=== PATIENT | female | born 1960 | race Caucasian/White ===

== ENCOUNTER 2017-08-15 13:32 | Observation (INO) | payer SELFPAY ==
--- NOTE | 2017-08-15 15:15 | ER Document Report ---
ED Medical Screen (RME) - General Chief Complaint: Chest Pain Stated Complaint: CHEST PAIN,HEADACHE Time Seen by Provider: 08/15/17 15:13 Mode of Arrival: Ambulatory Information source: Patient Notes: Patient reports sudden onset several hours ago of chest pain dizziness headache and bilateral arm pain. No previous cardiac evaluations or workup. No known cardiac or pulmonary history. TRAVEL OUTSIDE OF THE [place] IN LAST 30 DAYS: No - Related Data Allergies/Adverse Reactions: No Known Allergies Allergy (Unverified 08/15/17 13:32) Physical Exam - Vital signs Vitals: Temp Pulse Resp BP Pulse Ox 97.9 F 94 21 H 163/72 H 98 08/15/17 13:48 08/15/17 13:48 08/15/17 13:48 08/15/17 13:48 08/15/17 13:48 Course - Vital Signs Vital signs: Temp Pulse Resp BP Pulse Ox 97.9 F 94 21 H 163/72 H 98 08/15/17 13:48 08/15/17 13:48 08/15/17 13:48 08/15/17 13:48 08/15/17 13:48
[2017-08-15 15:42] LABS: ABSOLUTE BASOPHILS # (AUTO) 0.1 10^3/uL (0.0-0.2); ABSOLUTE EOSINOPHILS # (AUTO) 0.1 10^3/uL (0.0-0.6); ABSOLUTE LYMPHOCYTES (AUTO) 2.7 10^3/uL (0.5-4.7); ABSOLUTE MONOCYTES (AUTO) 0.5 10^3/uL (0.1-1.4); ABSOLUTE NEUT (AUTO) 4.3 10^3/uL (1.7-8.2); EOSINOPHILS % (AUTO) 1.8 % (0-6); HEMATOCRIT 43.5 % (36.0-47.0); HEMOGLOBIN 14.7 g/dL (12.0-15.5); MEAN CORPUSCULAR HEMOGLOBIN 34.9 pg (27.0-33.4); MEAN CORPUSCULAR HGB CONC 33.8 g/dL (32.0-36.0); MEAN CORPUSCULAR VOLUME 103 fl (80-97); MONOCYTES % (AUTO) 6.9 % (3-13); PLATELET COUNT 255 10^3/uL (150-450); RED BLOOD COUNT 4.22 10^6/uL (3.72-5.28); RED CELL DISTRIBUTION WIDTH 13.4 % (11.5-14.0); SEGMENTED NEUTROPHILS % (AUTO) 55.3 % (42-78); TOTAL CELLS COUNTED % (AUTO) 100 %; WHITE BLOOD COUNT 7.8 10^3/uL (4.0-10.5)
--- NOTE | 2017-08-15 15:49 | RADIOLOGY REPORT (SQ) ---
EXAM DESCRIPTION: CHEST PA/LAT COMPLETED DATE/TIME: 08/15/2017 3:40 pm REASON FOR STUDY: pain COMPARISON: None. EXAM PARAMETERS: NUMBER OF VIEWS: two views TECHNIQUE: Digital Frontal and Lateral radiographic views of the chest acquired. RADIATION DOSE: NA LIMITATIONS: none FINDINGS: LUNGS AND PLEURA: No opacities, masses or pneumothorax. No pleural effusion. MEDIASTINUM AND HILAR STRUCTURES: No masses or contour abnormalities. HEART AND VASCULAR STRUCTURES: Heart normal size. No evidence for failure. BONES: Possible old rib fractures on the right. HARDWARE: None in the chest. OTHER: No other significant finding. IMPRESSION: NO SIGNIFICANT RADIOGRAPHIC FINDING IN THE CHEST. TECHNICAL DOCUMENTATION: JOB ID: [id number] [employer]- All Rights Reserved
[2017-08-15 15:59] LABS: ALANINE AMINOTRANSFERASE 19 U/L (9-52); ALBUMIN 4.4 g/dL (3.5-5.0); ALKALINE PHOSPHATASE 120 U/L (38-126); ANION GAP 10 (5-19); ASPARTATE AMINO TRANSFERASE 18 U/L (14-36); BILIRUBIN,DIRECT 0.3 mg/dL (0.0-0.4); BILIRUBIN,TOTAL 0.3 mg/dL (0.2-1.3); BLOOD UREA NITROGEN 15 mg/dL (7-20); CALCIUM 9.9 mg/dL (8.4-10.2); CARBON DIOXIDE 30 mmol/L (22-30); CHLORIDE 105 mmol/L (98-107); GLUCOSE 80 mg/dL (75-110); POTASSIUM 4.4 mmol/L (3.6-5.0); SODIUM 144.5 mmol/L (137-145)
[2017-08-15] MEDS ORDERED: KETOROLAC TROMETHAMINE INJ/PF 30 MG/1 ML SDV IV ONE (16:32)
--- NOTE | 2017-08-15 16:38 | ER Document Report ---
ED General - General Chief Complaint: Chest Pain Stated Complaint: CHEST PAIN,HEADACHE Time Seen by Provider: 08/15/17 15:13 Mode of Arrival: Ambulatory Information source: Patient Notes: 57-year-old female no known past medical history since she has not seen a physician in 24 years presents with complaints of chest pressure sensation midsternal left-sided. Patient notes symptoms have been on and off for the past few hours. Patient is currently she has no chest pain, she notes that she had a headache this morning and checked her blood pressure which was elevated. She says she has no diagnosis of high blood pressure TRAVEL OUTSIDE OF THE [place] IN LAST 30 DAYS: No - HPI Onset: Just prior to arrival Onset/Duration: Sudden Quality of pain: Pressure Severity: Mild Pain Level: 1 Associated symptoms: Chest pain, Headache Exacerbated by: Denies Relieved by: Denies Similar symptoms previously: No Recently seen / treated by doctor: No - Related Data Allergies/Adverse Reactions: No Known Allergies Allergy (Unverified 08/15/17 13:32) Past Medical History - General Information source: Patient - Social History Smoking Status: Current Every Day Smoker Cigarette use (# per day): Yes Chew tobacco use (# tins/day): No Smoking Education Provided: No Frequency of alcohol use: Occasional Drug Abuse: None Family History: Reviewed & Not Pertinent Patient has suicidal ideation: No Patient has homicidal ideation: No Renal/ Medical History: Reports: Hx Peritoneal Dialysis Past Surgical History: Reports: Hx Section Review of Systems - Review of Systems Notes: REVIEW OF SYSTEMS: CONSTITUTIONAL : Denies fever, chills, or sweats. Denies recent illness. EENT: Denies eye, ear, throat, or mouth pain or symptoms. Denies nasal or sinus congestion or discharge. Denies throat, tongue, or mouth swelling or difficulty swallowing. CARDIOVASCULAR: Admits to chest pain RESPIRATORY: Denies cough, cold, or chest congestion. Denies shortness of breath, difficulty breathing, or wheezing. GASTROINTESTINAL: Denies abdominal pain or distention. Denies nausea, vomiting , or diarrhea. Denies blood in vomitus, stools, or per rectum. Denies black, tarry stools. Denies constipation. GENITOURINARY: Denies difficulty urinating, painful urination, burning, frequency, blood in urine, or discharge. FEMALE GENITOURINARY: Denies vaginal bleeding, heavy or abnormal periods, irregular periods. Denies vaginal discharge or odor. MUSCULOSKELETAL: Denies back or neck pain or stiffness. Denies joint pain or swelling. SKIN: Denies rash, lesions or sores. HEMATOLOGIC : Denies easy bruising or bleeding. LYMPHATIC: Denies swollen, enlarged glands. NEUROLOGICAL: Admits to tingling in the fingers admits to headache PSYCHIATRIC: Denies anxiety or stress. Denies depression, suicidal ideation, or homicidal ideation. ALL OTHER SYSTEMS REVIEWED AND NEGATIVE. PHYSICAL EXAMINATION: GENERAL: Well-appearing, well-nourished and in no acute distress. HEAD: Atraumatic, normocephalic. EYES: Pupils equal round and reactive to light, extraocular movements intact, conjunctiva are normal. ENT: Nares patent, oropharynx clear without exudates. Moist mucous membranes. NECK: Normal range of motion, supple without lymphadenopathy LUNGS: Breath sounds clear to auscultation bilaterally and equal. No wheezes rales or rhonchi. HEART: Regular rate and rhythm without murmurs ABDOMEN: Soft, nontender, nondistended abdomen. No guarding, no rebound. No masses appreciated. Female : deferred Musculoskeletal: Normal range of motion, no pitting or edema. No cyanosis. NEUROLOGICAL: Cranial nerves grossly intact. Normal speech, normal gait. Normal sensory, motor exams PSYCH: Normal mood, normal affect. SKIN: Warm, Dry, normal turgor, no rashes or lesions noted. Dictation was performed using [employer] voice recognition software Physical Exam - Vital signs Vitals: Temp Pulse Resp BP Pulse Ox 97.9 F 94 21 H 163/72 H 98 08/15/17 13:48 08/15/17 13:48 08/15/17 13:48 08/15/17 13:48 08/15/17 13:48 Course - Re-evaluation Re-evalutation: 08/15/17 16:39 Patient's lab work was quite benign however she has never seen a physician or been evaluated for cardiac risk factors, she will require observation 08/15/17 16:40 Patient's presentation is not concerning for an aortic dissection - Vital Signs Vital signs: Temp Pulse Resp BP Pulse Ox 97.9 F 94 12 144/91 H 98 08/15/17 13:48 08/15/17 13:48 08/15/17 15:56 08/15/17 15:56 08/15/17 15:56 - Laboratory Result Diagrams: 08/15/17 15:22 08/15/17 15:22 Laboratory results interpreted by me: 08/15/17 15:22 MCV 103 H MCH 34.9 H - Diagnostic Test Radiology reviewed: Image reviewed, Reports reviewed - EKG Interpretation by Me EKG shows normal: Sinus rhythm, [place], Intervals, QRS Complexes Discharge - Discharge Clinical Impression: Chest pain Qualifiers: Chest pain type: unspecified Qualified Code(s): R07.9 - Chest pain, unspecified Headache Qualifiers: Headache type: unspecified Headache chronicity pattern: acute headache Intractability: not intractable Qualified Code(s): R51 - Headache Condition: Stable Disposition: ADMITTED OBSERVATION Admitting Provider: Hospitalist Unit Admitted: Telemetry
[2017-08-15] MEDS ORDERED: INFLUENZA ADLT QUAD (36MOS+) 2017-18 VAC 0.5 ML SYR IM PRN (17:45)
[2017-08-15] MEDS ORDERED: DIPHENHYDRAMINE HCL 50 MG/ML VIAL IV ONE (18:04)
[2017-08-15] MEDS ORDERED: PROCHLORPERAZINE EDISYLATE INJ 10 MG/2 ML VIAL IV ONE (18:04)
--- NOTE | 2017-08-15 18:06 | EKG REPORT ---
SEVERITY:- NORMAL ECG - SINUS RHYTHM : Confirmed by: Ryan Lozano MD 15-Aug-2017 18:06:05
[2017-08-16] MEDS ORDERED: NITROGLYCERIN 0.4 MG/TAB 25 TAB/BOTTLE SL PRN (03:32)
[2017-08-16] MEDS ORDERED: MAG HYDROX/AL HYDROX/SIMETH SUSP 30 ML UDCUP PO PRN (03:32)
[2017-08-16 05:45] LABS: CHOLESTEROL 188.07 mg/dL (0-200); TRIGLYCERIDES 126 mg/dL (<150)
[2017-08-16] MEDS ORDERED: ACETAMINOPHEN 325 MG TABLET PO PRN (05:51)
[2017-08-16 05:55] LABS: DIRECT LDL 117 mg/dL (<100)
[2017-08-16 05:57] LABS: CREATINE KINASE MB 0.49 ng/mL (<4.55)
[2017-08-16 06:00] LABS: TROPONIN I < 0.012 ng/mL
[2017-08-16] MEDS ORDERED: LANSOPRAZOLE 30 MG TAB.RAP.DR PO SCH (06:00)
[2017-08-16] MEDS ORDERED: CETIRIZINE 10 MG TABLET PO SCH (10:00)
[2017-08-16 11:04] LABS: CREATINE KINASE MB 0.53 ng/mL (<4.55)
[2017-08-16 11:08] LABS: TROPONIN I < 0.012 ng/mL
--- NOTE | 2017-08-16 11:55 | DRAGON STRESS TEST REPORT ---
EXERCISE TREADMILL TEST. DATE OF PROCEDURE: August 16, 2017 INDICATION: Patient with unspecified chest pain. Coronary risk factors: Smoking. Resting EKG: Sinus rhythm, no baseline ST segment changes. Stress EKG: No significant changes noted with with exercise treadmill. Reason for termination: Dyspnea and fatigue. PROCEDURE REPORT: Baseline heart rate: 74 beats per minute with blood pressure of 165/87. Patient had no significant complaints at baseline. Patient was exercised on a standard Pramod protocol. Patient exercised for total of 6 minutes. Exercise was stopped because of fatigue and shortness of breath. Patient denied any chest arm or neck discomfort during the exercise, at peak exercise or in recovery. If automatic blood pressure recorded and if felt not accurate manual blood pressure then were recorded at appropriate intervals. Peak heart rate: 134 bpm, 81 of predicted maximum. Peak blood pressure: 210/91 mmHg. Double product: 27.3 kcal Exercise EKG: Showed some baseline artifact during exercise but no significant ST segment changes noted. CONCLUSIONS: Normal EKG and hemodynamic response to exercise, except for excessive increase in systolic and diastolic blood pressure response to exercise but patient had baseline hypertension. Average exercise tolerance. Negative EKG changes with exercise. RECOMMENDATIONS: Aggressive risk factor modification, medical therapy. Consider cardiology consultation if clinically indicated. Bonny Ferrara M.D., [employer] booster plant operator, Board certified in cardiovascular diseases, Nuclear cardiology, Echocardiography Cardiac CT and cardiac MRI Ph. [phone] Ph. [phone] [facility]
[2017-08-16 12:14] VITALS: BP 137/78
--- NOTE | 2017-08-16 14:36 | PDOC DISCHARGE SUMMARY ---
General - Admit/Disc Date/PCP Admission Date/Primary Care Provider: 08/15/17 16:54 Discharge Date: 08/16/17 - Additional Information Resuscitation Status: Full Code Discharge Diet: As Tolerated Discharge Activity: Activity As Tolerated Home Medications: Cetirizine HCl [Zyrtec] 10 mg PO DAILY 08/15/17 History of Present Illness History of Present Illness: SARIAH BLANC is a 57 year old female who presented to the emergency department with chest pain. She describes her sensation as pressure. The onset was sudden. It occurred several hours prior to presentation. It was not associated with nausea, vomiting, diaphoresis or palpitations. She reported a headache however. She has not seen a physician about 24 years. He does not have any known medical conditions. Risk factors include: Smoking Hospital Course Hospital Course: Ms. Blanc was admitted for chest pain evaluation. She ruled out for myocardial infarction based on negative cardiac enzymes. Her initial ECG showed no ischemic changes. Her chest x-ray showed no acute abnormalities. She underwent an exercise treadmill stress test. There was no evidence for ischemia. Her hospital stay was uneventful. At the time of discharge she was asymptomatic. Physical Exam Vital Signs: Temp Pulse Resp BP Pulse Ox 98.4 F 74 18 137/78 H 98 08/16/17 12:13 08/16/17 12:13 08/16/17 12:13 08/16/17 12:13 08/16/17 12:13 Intake & Output 08/15/17 08/16/17 08/17/17 06:59 06:59 06:59 Intake Total 5 Balance 5 Weight 80.9 kg General appearance: PRESENT: no acute distress, well-developed, well-nourished Respiratory exam: PRESENT: clear to auscultation josy. ABSENT: rales, rhonchi, wheezes Cardiovascular exam: PRESENT: RRR. ABSENT: diastolic murmur, rubs, systolic murmur Musculoskeletal exam: PRESENT: ambulatory Neurological exam: PRESENT: alert, awake, oriented to person, oriented to place , oriented to time, oriented to situation, CN II-XII grossly intact. ABSENT: motor sensory deficit Psychiatric exam: PRESENT: appropriate affect, normal mood. ABSENT: homicidal ideation, suicidal ideation Results Laboratory Results: 08/16/17 05:00 Triglycerides 126 Cholesterol 188.07 LDL Cholesterol Direct 117 H VLDL Cholesterol 25.0 HDL Cholesterol 51 08/16/17 08/16/17 05:00 10:14 CK-MB (CK-2) 0.49 0.53 Troponin I < 0.012 < 0.012 Impressions: Chest X-Ray 08/15/17 15:14 IMPRESSION: NO SIGNIFICANT RADIOGRAPHIC FINDING IN THE CHEST. Qualifiers - * PATEINT BEING DISCHARGED WITH ANY OF THE FOLLOWING DIAGNOSIS?: No Plan Time Spent: Less than 30 Minutes
== END 2017-08-16 15:16 | disposition home or self-care (01) ==
LOC: ER 13:32 → EH 16:54 → 4W 08-16 02:36
PROVIDERS: ADMIT Internal Medicine; ATTEND Internal Medicine
DX: R07.89 Other chest pain (principal); R51 Headache; F17.210 Nicotine dependence, cigarettes, uncomplicated; R20.2 Paresthesia of skin; M79.602 Pain in left arm; M79.601 Pain in right arm; R42 Dizziness and giddiness; R03.0 Elevated blood-pressure reading, without diagnosis of hypertension
CPT/HCPCS: 93005; 99285; 96374; 96375; 36415 ×2; 82553; 85025; 80053; 84484 ×2; 80061; 93017; 71046; 93010; G0378; J1200; J1885; J0780